=== PATIENT | male | born 1955 | race Caucasian/White ===

== ENCOUNTER 2019-01-01 13:18 | Emergency (ER) | payer MEDICARE ==
[~2019-01-01] VITALS: Ht 177.8 cm; Wt 95.3 kg
[2019-01-01] MEDS ORDERED: ROBAXIN-750750 MG PO (17:06)
[2019-01-01] MEDS ORDERED: IBUPROFEN600 MG PO (17:06)
== END 2019-01-01 17:15 | disposition home or self-care (01) ==
LOC: ED 13:18
DX: S29.011A Strain of muscle and tendon of front wall of thorax, initial encounter (principal); Z88.2 Allergy status to sulfonamides; W18.41XA Slipping, tripping and stumbling without falling due to stepping on object, initial encounter; Y93.89 Activity, other specified; Y92.89 Other specified places as the place of occurrence of the external cause; Y99.8 Other external cause status

== ENCOUNTER 2020-05-02 09:34 | Emergency (ER) | payer MEDICARE ==
[~2020-05-02] VITALS: Wt 86.2 kg
[~2020-05-02 09:34] MED LIST: IBUPROFEN600 MG PO; ROBAXIN-750750 MG PO
[2020-05-02] MEDS ORDERED: CLINDAMYCIN HC300 MG PO (09:48)
== END 2020-05-02 10:00 | disposition home or self-care (01) ==
LOC: ED 09:34
DX: K08.89 Other specified disorders of teeth and supporting structures (principal); I10 Essential (primary) hypertension; I25.10 Atherosclerotic heart disease of native coronary artery without angina pectoris; Z88.2 Allergy status to sulfonamides; Z95.818 Presence of other cardiac implants and grafts

== ENCOUNTER 2020-06-09 09:50 | Emergency (ER) | payer MEDICARE ==
[~2020-06-09] VITALS: Ht 177.8 cm; Wt 83.9 kg
[~2020-06-09 09:50] MED LIST changes: +CLINDAMYCIN HC300 MG PO
[2020-06-09] MEDS ORDERED: CYCLOBENZAPRINE10 MG PO (10:24)
[2020-06-09] MEDS ORDERED: PREDNISONE50 MG PO (10:24)
== END 2020-06-09 10:32 | disposition home or self-care (01) ==
LOC: ED 09:50
DX: S39.012A Strain of muscle, fascia and tendon of lower back, initial encounter (principal); Z88.2 Allergy status to sulfonamides; Z79.899 Other long term (current) drug therapy; Z95.818 Presence of other cardiac implants and grafts; X58.XXXA Exposure to other specified factors, initial encounter; Y93.89 Activity, other specified; Y92.89 Other specified places as the place of occurrence of the external cause; Y99.8 Other external cause status

== ENCOUNTER 2020-06-12 13:15 | Inpatient (IN) | payer MEDICARE ==
[~2020-06-12] VITALS: Ht 177.8 cm; Wt 82.2 kg
[2020-06-12] VITALS (7 sets, daily range): BP systolic 101–133; BP diastolic 57–76
[~2020-06-12 13:15] MED LIST changes: +CYCLOBENZAPRINE10 MG PO; +PREDNISONE50 MG PO
[2020-06-12 13:44] LABS: BASO % 0.2 % (0.0-1.0); HEMATOCRIT 38.9 % (42.0-52.0); LYMPH # 0.6 10*3/uL (1.3-4.4); MEAN CELL VOLUME 94.2 fl (80.0-94.0); MEAN CORPUSCULAR HGB CONC 33.9 g/dl (33.0-37.0); MEAN PLATELET VOLUME 9.6 fl (9.6-12.3); MONO # 0.5 10*3/uL (0.1-1.0); MONO % 7.2 % (3.0-9.0); NEUT # 5.1 10*3/uL (2.3-7.9); PLATELET COUNT AUTOMATED 128 10*3/uL (130-400); RED BLOOD COUNT 4.13 10*6/uL (4.50-5.90); WHITE BLOOD COUNT 6.2 10*3/uL (4.8-10.8)
[2020-06-12 13:53] LABS: ACT PARTIAL THROMBO TIME 28.5 SECONDS (20.0-32.1)
[2020-06-12 14:13] LABS: ALBUMIN 3.1 gm/dl (3.1-4.5); ALKALINE PHOSPHATASE 98 U/L (45-117); BUN 28 mg/dl (7-24); CHLORIDE 99 mmol/L (98-107); CREATININE 1.42 mg/dL (0.70-1.30); POTASSIUM 2.9 mmol/L (3.5-5.1); SGOT/AST 40 IU/L (3-35); SGPT/ALT 32 U/L (12-78); SODIUM 134 mmol/L (136-145); TOTAL PROTEIN 6.9 gm/dL (6.4-8.2)
[2020-06-12 14:14] LABS: TROPONIN I < 0.015 ng/ml (<0.045)
[2020-06-13] VITALS: BP 100/61; BP 98/58
[2020-06-13 03:35] VITALS: BP 103/62
[2020-06-13 06:08] LABS: BASO % 0.1 % (0.0-1.0); HEMATOCRIT 36.9 % (42.0-52.0); LYMPH # 0.8 10*3/uL (1.3-4.4); LYMPH % 6.7 % (27.0-41.0); MEAN CELL VOLUME 94.1 fl (80.0-94.0); MEAN CORPUSCULAR HGB 31.6 pg (27.0-31.0); MEAN CORPUSCULAR HGB CONC 33.6 g/dl (33.0-37.0); MEAN PLATELET VOLUME 9.8 fl (9.6-12.3); MONO # 0.5 10*3/uL (0.1-1.0); MONO % 4.3 % (3.0-9.0); NEUT # 10.3 10*3/uL (2.3-7.9); NEUT % 88.3 % (47.0-73.0); PLATELET COUNT AUTOMATED 113 10*3/uL (130-400); RED BLOOD COUNT 3.92 10*6/uL (4.50-5.90); RED CELL DISTRI WIDTH 13.2 % (0-14.5); WHITE BLOOD COUNT 11.7 10*3/uL (4.8-10.8)
[2020-06-13 06:13] LABS: ALBUMIN 2.7 gm/dl (3.1-4.5); ALKALINE PHOSPHATASE 92 U/L (45-117); BUN 28 mg/dl (7-24); CHLORIDE 102 mmol/L (98-107); CHOLESTEROL 132 mg/dL (<200); CREATININE 1.23 mg/dL (0.70-1.30); HDL CHOLESTEROL 64 mg/dl (40-60); LDH 247 U/L (87-241); LDL CHOLESTEROL 57 mg/dL (9-159); POTASSIUM 3.5 mmol/L (3.5-5.1); SGOT/AST 34 IU/L (3-35); SGPT/ALT 30 U/L (12-78); SODIUM 137 mmol/L (136-145); TOTAL PROTEIN 6.6 gm/dL (6.4-8.2); TRIGLYCERIDES 57 mg/dl (<150); VLDL CHOLESTEROL 11 mg/dL (6-40)
[2020-06-13 06:21] LABS: CPK 75 U/L (39-308); FREE T4 0.98 ng/dl (0.76-1.46)
[2020-06-13 06:56] LABS: VITAMIN D, 25-HYDROXY 46.4 ng/mL (30-100)
[2020-06-13 06:57] LABS: FERRITIN 1330.6 ng/mL (22.0-322.0)
[2020-06-13 08:00] VITALS: BP 102/73
[2020-06-13] MEDS ORDERED: ARAVA20 MG PO (11:34)
[2020-06-13] MEDS ORDERED: PLAQUENIL200 MG PO (11:35)
[2020-06-13] MEDS ORDERED: HYDR25T PO ×2 (11:36→14:23)
[2020-06-13] MEDS ORDERED: LISINOPRIL20 MG PO ×2 (11:37→14:23)
[2020-06-13] MEDS ORDERED: TOPROL XL50 M1 PO (11:37)
[2020-06-13 12:00] VITALS: BP 110/67
[2020-06-13 16:00] VITALS: BP 122/72
[2020-06-13 20:00] VITALS: BP 120/65
[2020-06-14] VITALS: BP 105/57
[2020-06-14 06:02] LABS: BASO % 0.1 % (0.0-1.0); HEMATOCRIT 35.8 % (42.0-52.0); LYMPH # 0.6 10*3/uL (1.3-4.4); LYMPH % 5.5 % (27.0-41.0); MEAN CORPUSCULAR HGB 31.8 pg (27.0-31.0); MEAN CORPUSCULAR HGB CONC 33.5 g/dl (33.0-37.0); MEAN PLATELET VOLUME 9.9 fl (9.6-12.3); MONO # 0.5 10*3/uL (0.1-1.0); MONO % 4.3 % (3.0-9.0); NEUT # 10.2 10*3/uL (2.3-7.9); NEUT % 89.7 % (47.0-73.0); PLATELET COUNT AUTOMATED 129 10*3/uL (130-400); RED BLOOD COUNT 3.77 10*6/uL (4.50-5.90); WHITE BLOOD COUNT 11.4 10*3/uL (4.8-10.8)
[2020-06-14 06:31] LABS: ALBUMIN 2.5 gm/dl (3.1-4.5); BUN 28 mg/dl (7-24); CHLORIDE 104 mmol/L (98-107); CREATININE 1.03 mg/dL (0.70-1.30); LDH 245 U/L (87-241); SGOT/AST 24 IU/L (3-35); SGPT/ALT 26 U/L (12-78); SODIUM 139 mmol/L (136-145); TOTAL PROTEIN 6.6 gm/dL (6.4-8.2)
[2020-06-14 06:32] LABS: ALKALINE PHOSPHATASE 80 U/L (45-117)
[2020-06-14 06:55] LABS: CPK 46 U/L (39-308)
[2020-06-14 08:00] VITALS: BP 108/62
[2020-06-14 12:00] VITALS: BP 119/77
[2020-06-14 16:00] VITALS: BP 123/81
[2020-06-14 20:13] VITALS: BP 106/66
[2020-06-15] VITALS: BP 112/69
[2020-06-15 06:52] LABS: HEMATOCRIT 36.1 % (42.0-52.0); LYMPH # 0.8 10*3/uL (1.3-4.4); LYMPH % 8.1 % (27.0-41.0); MEAN CELL VOLUME 95.8 fl (80.0-94.0); MEAN CORPUSCULAR HGB 32.1 pg (27.0-31.0); MEAN CORPUSCULAR HGB CONC 33.5 g/dl (33.0-37.0); MEAN PLATELET VOLUME 9.5 fl (9.6-12.3); MONO # 0.6 10*3/uL (0.1-1.0); MONO % 6.1 % (3.0-9.0); NEUT # 7.9 10*3/uL (2.3-7.9); NEUT % 85.1 % (47.0-73.0); PLATELET COUNT AUTOMATED 155 10*3/uL (130-400); RED BLOOD COUNT 3.77 10*6/uL (4.50-5.90); RED CELL DISTRI WIDTH 13.1 % (0-14.5); WHITE BLOOD COUNT 9.2 10*3/uL (4.8-10.8)
[2020-06-15 07:37] LABS: BUN 30 mg/dl (7-24); CHLORIDE 109 mmol/L (98-107); CREATININE 1.01 mg/dL (0.70-1.30); POTASSIUM 3.5 mmol/L (3.5-5.1); SODIUM 142 mmol/L (136-145)
[2020-06-15 07:38] LABS: ALBUMIN 2.4 gm/dl (3.1-4.5); ALKALINE PHOSPHATASE 77 U/L (45-117); CPK 30 U/L (39-308); LDH 225 U/L (87-241); SGOT/AST 16 IU/L (3-35); SGPT/ALT 23 U/L (12-78); TOTAL PROTEIN 6.4 gm/dL (6.4-8.2)
[2020-06-15 08:00] VITALS: BP 122/93
[2020-06-15 12:00] VITALS: BP 125/72
[2020-06-15] MEDS ORDERED: METOPROLOL SUCC25 M2 PO (13:35)
[2020-06-15] MEDS ORDERED: DECADRON6 M1 PO (13:35)
[2020-06-15] MEDS ORDERED: ASPIRIN ADULT L81 M2 PO (13:35)
== END 2020-06-15 16:11 | disposition home or self-care (01) | DRG 871 ==
LOC: ED 13:15 → 4E 14:31 → EDHOLD 14:31 → 4E 14:44
PROVIDERS: Emergency Medicine; Internal Medicine; Registered Nurse; ADMIT Internal Medicine; ATTEND Internal Medicine
PROC: XW033E5 Introduction of Remdesivir Anti-infective into Peripheral Vein, Percutaneous Approach, New Technology Group 5 (ICD-10-PCS; principal; 2020-06-15)
DX: A41.9 Sepsis, unspecified organism (principal); N17.0 Acute kidney failure with tubular necrosis; U07.1 COVID-19; J12.82 Pneumonia due to coronavirus disease 2019; J96.01 Acute respiratory failure with hypoxia; E44.0 Moderate protein-calorie malnutrition; D64.9 Anemia, unspecified; I25.10 Atherosclerotic heart disease of native coronary artery without angina pectoris; E87.6 Hypokalemia; I10 Essential (primary) hypertension; R74.01 Elevation of levels of liver transaminase levels; Z95.5 Presence of coronary angioplasty implant and graft; Z88.2 Allergy status to sulfonamides; Z79.899 Other long term (current) drug therapy; Z68.27 Body mass index [BMI] 27.0-27.9, adult

== ENCOUNTER 2021-01-01 09:47 | Emergency (ER) | payer MEDICARE ==
[~2021-01-01] VITALS: Wt 81.6 kg
[~2021-01-01 09:47] MED LIST changes: +ARAVA20 MG PO; +ASPIRIN ADULT L81 M2 PO; +DECADRON6 M1 PO; +HYDR25T PO; +LISINOPRIL20 MG PO; +METOPROLOL SUCC25 M2 PO; +PLAQUENIL200 MG PO; +TOPROL XL50 M1 PO
[2021-01-01 11:05] LABS: BILIRUBIN Negative (Negative); BLOOD Negative (Negative); CLARITY Clear (Clear); COLOR Yellow (Yellow); GLUCOSE Negative (Negative); KETONE Negative (Negative); LEUKO ESTERASE Negative (Negative); NITRITE Negative (Negative); UROBILINOGEN 0.2 E.U./dl (0.0-1.0)
[2021-01-01 11:14] LABS: RBC 0-2 rbc/hpf (0-2); WBC 0-2 wbc/hpf (0-5)
[2021-01-01] MEDS ORDERED: MEDROL DOSEPAK4 MG PO (11:33)
[2021-01-01] MEDS ORDERED: CYCLOBENZAPRINE5 M3 PO (11:33)
== END 2021-01-01 09:59 | disposition home or self-care (01) ==
LOC: ED 09:47
PROVIDERS: Emergency Medicine
DX: M54.6 Pain in thoracic spine (principal); M54.50 Low back pain, unspecified; Z88.2 Allergy status to sulfonamides; Z79.899 Other long term (current) drug therapy

== ENCOUNTER 2021-10-31 07:11 | Emergency (ER) | payer MEDICARE ==
[~2021-10-31] VITALS: Wt 83.9 kg
[~2021-10-31 07:11] MED LIST changes: +CYCLOBENZAPRINE5 M3 PO; +MEDROL DOSEPAK4 MG PO
[2021-10-31] MEDS ORDERED: AMOXICILLIN500 M3 PO (07:32)
== END 2021-10-31 07:44 | disposition home or self-care (01) ==
LOC: ED 07:11
DX: K04.7 Periapical abscess without sinus (principal); Z88.2 Allergy status to sulfonamides; Z79.899 Other long term (current) drug therapy; Z79.82 Long term (current) use of aspirin; Z95.5 Presence of coronary angioplasty implant and graft

== ENCOUNTER → 2022-08-31 | Outpatient (CLI) | payer MEDICARE ==
[~2022-08-31] MED LIST changes: +AMOXICILLIN500 M3 PO
[2022-08-31 12:31] LABS: BUN 16 mg/dl (9-23); CHLORIDE 110 mmol/L (98-107); POTASSIUM 3.8 mmol/L (3.4-5.1)
== END | disposition home or self-care (01) ==
LOC: LAB 11:43
PROVIDERS: ATTEND Nurse Practitioner
DX: I25.2 Old myocardial infarction (principal)

== ENCOUNTER 2023-12-18 07:55 | Emergency (ER) | payer OTHER ==
[~2023-12-18] VITALS: Ht 177.8 cm; Wt 90.4 kg
== END 2023-12-18 09:58 | disposition home or self-care (01) ==
LOC: ED 07:55
DX: S80.12XA Contusion of left lower leg, initial encounter (principal); S80.812A Abrasion, left lower leg, initial encounter; I10 Essential (primary) hypertension; I25.10 Atherosclerotic heart disease of native coronary artery without angina pectoris; I48.91 Unspecified atrial fibrillation; Z88.2 Allergy status to sulfonamides; Z95.5 Presence of coronary angioplasty implant and graft; Z98.890 Other specified postprocedural states; W55.12XA Struck by horse, initial encounter; Y93.89 Activity, other specified; Y92.89 Other specified places as the place of occurrence of the external cause; Y99.8 Other external cause status

== ENCOUNTER 2023-12-23 07:54 | Emergency (ER) | payer OTHER ==
[~2023-12-23] VITALS: Ht 177.8 cm; Wt 89.8 kg
[2023-12-23] MEDS ORDERED: VIBRAMYCIN100 MG PO (08:41)
== END 2023-12-23 08:53 | disposition home or self-care (01) ==
LOC: ED 07:54
DX: S80.12XD Contusion of left lower leg, subsequent encounter (principal); I10 Essential (primary) hypertension; I25.10 Atherosclerotic heart disease of native coronary artery without angina pectoris; I48.91 Unspecified atrial fibrillation; Z88.2 Allergy status to sulfonamides; Z95.5 Presence of coronary angioplasty implant and graft; Z98.890 Other specified postprocedural states; W55.12XD Struck by horse, subsequent encounter

== ENCOUNTER 2024-10-07 10:08 | Emergency (ER) | payer OTHER ==
[~2024-10-07] VITALS: Ht 177.8 cm; Wt 79.4 kg
[~2024-10-07 10:08] MED LIST changes: +VIBRAMYCIN100 MG PO
[2024-10-07] MEDS ORDERED: METHOCARBAMOL750 M1 PO (11:23)
== END 2024-10-07 11:38 | disposition home or self-care (01) ==
LOC: ED 10:08
DX: S46.911A Strain of unspecified muscle, fascia and tendon at shoulder and upper arm level, right arm, initial encounter (principal); Z98.890 Other specified postprocedural states; Z88.2 Allergy status to sulfonamides; Z79.899 Other long term (current) drug therapy; Z79.82 Long term (current) use of aspirin; Z95.5 Presence of coronary angioplasty implant and graft; X58.XXXA Exposure to other specified factors, initial encounter; Y93.89 Activity, other specified; Y92.096 Garden or yard of other non-institutional residence as the place of occurrence of the external cause; Y99.8 Other external cause status

== ENCOUNTER 2025-01-24 12:26 | Emergency (ER) | payer OTHER ==
[~2025-01-24] VITALS: Ht 177.8 cm; Wt 81.6 kg
[~2025-01-24 12:26] MED LIST changes: +METHOCARBAMOL750 M1 PO
[2025-01-24] MEDS ORDERED: PREDNISONE50 MG PO (15:30)
[2025-01-24] MEDS ORDERED: LISINOPRIL20 MG PO (15:30)
[2025-01-24] MEDS ORDERED: METOPROLOL SUCC25 M2 PO (15:30)
[2025-01-24] MEDS ORDERED: CYCLOBENZAPRINE5 M3 PO (15:30)
== END 2025-01-24 15:35 | disposition home or self-care (01) ==
LOC: ED 12:26
DX: M62.830 Muscle spasm of back (principal); I10 Essential (primary) hypertension; I25.10 Atherosclerotic heart disease of native coronary artery without angina pectoris; Z88.2 Allergy status to sulfonamides

== ENCOUNTER 2025-02-05 12:00 | Emergency (ER) | payer SELFPAY ==
[~2025-02-05] VITALS: Wt 83.9 kg
[2025-02-05] MEDS ORDERED: LISINOPRIL20 MG PO (12:29)
[2025-02-05] MEDS ORDERED: METOPROLOL SUCC25 M2 PO (12:29)
[2025-02-05] MEDS ORDERED: CYCLOBENZAPRINE5 M3 PO (12:29)
== END 2025-02-05 12:39 | disposition home or self-care (01) ==
LOC: ED 12:00
DX: Z76.0 Encounter for issue of repeat prescription (principal); I10 Essential (primary) hypertension; I25.10 Atherosclerotic heart disease of native coronary artery without angina pectoris; M06.9 Rheumatoid arthritis, unspecified; I48.0 Paroxysmal atrial fibrillation; Z88.2 Allergy status to sulfonamides; Z79.82 Long term (current) use of aspirin; Z79.899 Other long term (current) drug therapy